=== PATIENT | female | born 1990 | race American Indian/Alaskan Native ===

== ENCOUNTER 2018-01-21 19:41 | Outpatient (CLI) | payer MEDICAID ==
[2018-01-21 20:03] VITALS: BP 139/81
[2018-01-21 20:21] LABS: Bilirubin,Urine NEG (Negative); Blood,Urine NEG (Negative); Color,Urine Yellow (Yellow); Protein,Urine <15 mg/dL mg/dL (Negative); Urobilinogen,Urine < 2.0 mg/dL (<2.0); WBC,Urine < 1.0 /HPF (0.0-6.0)
[2018-01-21] MEDS ORDERED: LACTATED RINGERS 1,000 ML IV ONE (20:55)
[2018-01-21 22:23] LABS: Amphetamine Screen,Urine PRESUMPTIVE NEGATIVE; Benzodiazepines Screen,Urine PRESUMPTIVE NEGATIVE; Cannabinoid Screen,Urine PRESUMPTIVE NEGATIVE; Cocaine Screen,Urine PRESUMPTIVE NEGATIVE; Methadone Screen,Urine PRESUMPTIVE NEGATIVE; Opiate Screen,Urine PRESUMPTIVE NEGATIVE
[2018-01-21] MEDS ORDERED: ROCEPHIN/NS 1 GM/50 ML 1 GM/50 ML BAG IV ONE (23:28)
--- NOTE | 2018-01-22 05:56 | Event Note ---
Date: 01/21/18 27 year old at 29 weeks, 1 day gestation presents with complaint of lower back pain and suprapubic pain for past 1-2 days. Was on her feet a lot yesterday. Pt. denies falls or abdominal trauma. She denies contractions, constant pain, leaking of fluid, or vaginal bleeding. Pt. reports urinary frequency. She denies bowel symptoms, nausea or vomiting, fever or malaise. Pt. denies VB or LOF. Pt. reports active movement. Pt. is well appearing and vital signs are stable. Abdomen soft, NT, gravid. Active movement. No contractions palpated or noted per monitor. No CVAT. Cervix closed and thick. UA done. Rocephin 1 gram IV. IV hydration. Pt. states pain resolved with resting here in triage. Advised pt. to wait to see Dr. Calvert before she leaves today due to history of previous section. Dr. Calvert to evaluate pt. but pt. left/ signed out AMA.
== END 2018-01-22 01:40 | disposition left against medical advice (07) ==
LOC: TRG 19:41
PROVIDERS: ATTEND Obstetrics & Gynecology
DX: O47.02 False labor before 37 completed weeks of gestation, second trimester (principal); Z3A.29 29 weeks gestation of pregnancy
CPT/HCPCS: 59025; 80307; 81001; 96360; 96365; J0696; J7120

== ENCOUNTER 2018-03-02 11:19 | Outpatient (CLI) | payer MEDICAID ==
[2018-03-02] MEDS ORDERED: LACTATED RINGERS 500 ML IV ONE (12:29)
[2018-03-02 12:37] LABS: Bacteria,Urine 1+ /HPF (Negative); Bilirubin,Urine NEG (Negative); Blood,Urine NEG (Negative); Color,Urine Straw (Yellow); Mucus,Urine FEW /HPF; Protein,Urine <15 mg/dL mg/dL (Negative); Urobilinogen,Urine < 2.0 mg/dL (<2.0); WBC,Urine < 1.0 /HPF (0.0-6.0)
[2018-03-02 12:39] LABS: Hematocrit 39.5 % (30.3-42.9); Hemoglobin 12.8 gm/dl (10.1-14.3); Mean Corpuscular HGB Conc 32 % (30-34); Mean Corpuscular Volume 74 fl (79-97); Platelet Count 193 K/mm3 (140-440); Red Blood Count 5.32 M/mm3 (3.65-5.03); Red Cell Distribution Width 14.6 % (13.2-15.2)
[2018-03-02 12:42] LABS: Mean Corpuscular Hemoglobin 24 pg (28-32)
[2018-03-02 13:01] LABS: Alanine Aminotransferase 25 units/L (7-56); Uric Acid 5.9 mg/dL (3.5-7.6)
[2018-03-02 13:02] VITALS: BP 130/72
== END 2018-03-02 13:29 | disposition home or self-care (01) ==
LOC: TRG 11:19
PROVIDERS: ATTEND Obstetrics & Gynecology
DX: O47.03 False labor before 37 completed weeks of gestation, third trimester (principal); O16.3 Unspecified maternal hypertension, third trimester; Z3A.35 35 weeks gestation of pregnancy
CPT/HCPCS: 36415; 59025; 81001; 82565; 83615; 84450; 84460; 84550; 85027

== ENCOUNTER 2018-03-09 12:21 | Outpatient (CLI) | payer MEDICAID ==
[2018-03-09 13:02] LABS: Hematocrit 37.5 % (30.3-42.9); Hemoglobin 12.6 gm/dl (10.1-14.3); Mean Corpuscular HGB Conc 34 % (30-34); Mean Corpuscular Volume 73 fl (79-97); Platelet Count 201 K/mm3 (140-440); Red Blood Count 5.14 M/mm3 (3.65-5.03); Red Cell Distribution Width 14.9 % (13.2-15.2)
[2018-03-09 13:04] LABS: Mean Corpuscular Hemoglobin 25 pg (28-32)
[2018-03-09 13:08] LABS: Bilirubin,Urine NEG (Negative); Blood,Urine NEG (Negative); Color,Urine Straw (Yellow); Protein,Urine <15 mg/dL mg/dL (Negative); RBC,Urine < 1.0 /HPF (0.0-6.0); Urobilinogen,Urine < 2.0 mg/dL (<2.0); WBC,Urine < 1.0 /HPF (0.0-6.0)
[2018-03-09 13:15] LABS: Alanine Aminotransferase 24 units/L (7-56)
[2018-03-09 14:07] VITALS: BP 116/62
[2018-03-09 19:42] LABS: Uric Acid 6.2 mg/dL (3.5-7.6)
== END 2018-03-09 14:19 | disposition home or self-care (01) ==
LOC: TRG 12:21
PROVIDERS: ATTEND Obstetrics & Gynecology
DX: O47.03 False labor before 37 completed weeks of gestation, third trimester (principal); O16.3 Unspecified maternal hypertension, third trimester; Z3A.36 36 weeks gestation of pregnancy
CPT/HCPCS: 36415; 59025; 81001; 82565; 83615; 84450; 84460; 84550; 85027

== ENCOUNTER 2018-03-16 13:37 | Outpatient (CLI) | payer MEDICAID ==
[2018-03-16 14:59] LABS: Bacteria,Urine 1+ /HPF (Negative); Bilirubin,Urine NEG (Negative); Blood,Urine NEG (Negative); Color,Urine Yellow (Yellow); Protein,Urine <15 mg/dL mg/dL (Negative); Urobilinogen,Urine < 2.0 mg/dL (<2.0)
[2018-03-16 15:00] LABS: Hematocrit 37.7 % (30.3-42.9); Hemoglobin 12.4 gm/dl (10.1-14.3); Mean Corpuscular HGB Conc 33 % (30-34); Mean Corpuscular Hemoglobin 24 pg (28-32); Mean Corpuscular Volume 74 fl (79-97); Platelet Count 177 K/mm3 (140-440); Red Blood Count 5.11 M/mm3 (3.65-5.03); Red Cell Distribution Width 14.4 % (13.2-15.2)
[2018-03-16 15:29] LABS: Alanine Aminotransferase 28 units/L (7-56)
[2018-03-16 15:40] VITALS: BP 144/74
[2018-03-16 19:58] LABS: Uric Acid 6.6 mg/dL (3.5-7.6)
== END 2018-03-16 15:50 | disposition home or self-care (01) ==
LOC: TRG 13:37
PROVIDERS: ATTEND Obstetrics & Gynecology
DX: O47.03 False labor before 37 completed weeks of gestation, third trimester (principal); O10.013 Pre-existing essential hypertension complicating pregnancy, third trimester; O24.419 Gestational diabetes mellitus in pregnancy, unspecified control; Z3A.37 37 weeks gestation of pregnancy
CPT/HCPCS: 36415; 59025; 81001; 82565; 83615; 84450; 84460; 84550; 85027